=== PATIENT | male | born 2000 | race Caucasian/White ===

== ENCOUNTER 2021-08-13 00:45 | Emergency (ER) | payer OTHER ==
[~2021-08-13] VITALS: Ht 193 cm; Wt 72.7 kg
[2021-08-13 01:58] VITALS: BP 116/69; PULSE 68; TEMP 97.7
== END 2021-08-13 01:58 | disposition home or self-care (01) ==
LOC: COL.ER 00:45
DX: S01.01XA Laceration without foreign body of scalp, initial encounter (principal); W19.XXXA Unspecified fall, initial encounter; W22.8XXA Striking against or struck by other objects, initial encounter; Y93.01 Activity, walking, marching and hiking; Y92.009 Unspecified place in unspecified non-institutional (private) residence as the place of occurrence of the external cause

== ENCOUNTER → 2021-08-21 | Emergency (ER) | payer OTHER ==
[2021-08-21 10:15] VITALS: BP 122/74; PULSE 65; TEMP 97.5
== END ==
LOC: COL.ER 10:07
DX: Z48.02 Encounter for removal of sutures (principal)